=== PATIENT | female | born 1945 | race Caucasian/White ===

== ENCOUNTER → 2016-11-12 | Outpatient (CLI) | payer MEDICARE, MEDICAID ==
[~2016-11-12] MED LIST: ADULT LOW DOSE81 MG PO; ADVAIR IH; ALBUTEROL IH; ALEVE220 M1 PO; ASA CHILDREN'S81 MG PO; ATIVAN-DPS0.5 MG PO; BENZONATATE200 MG PO; BREO ELLIPTA 21 EACH IH; BROVANA15 MCG/2 M IH; CALTRATE 600 +1 EAC1 PO; CALTRATE-600 W600 MG PO; COLACE-DPS100 MG PO; DELTASONE DPS10 MG PO; DUONEB DPS3 ML IH; DURAGESIC-1212 MCG TP; FLEXERIL DPS5 MG PO; GABAPENTIN300 MG PO; GLUCOPHAGE XR750 M1 PO; HUMALOG SQ; HYZAAR 50-12.51 TAB PO; LEVAQUIN DPS500 MG PO; LEVAQUIN750 MG PO; LOSARTAN-HCTZ1 EAC2 PO; METFORMIN HCL750 MG PO; METOLAZONE2.5 MG PO; MONTELUKAST SOD10 MG PO; MUCINEX600 MG PO; NEURONTIN DPS300 MG PO; NORCO 5-325 TA1 EACH PO; NOVOLOG MI100 UNIT/2 SQ; NOVOLOG MI100 UNITS/ SQ; POTASSIUM CHLO20 ME2 PO; POTASSIUM CHLO20 MEQ PO; PREDNISONE PO; PRILOSEC DPS20 MG PO; PROAIR HFA8.5 GM IH; PROVENTIL2.5 MG/3 M IH; PULMICORT0.5 MG/21 IH; SINGULAIR10 MG PO; TYLENOL EXTRA500 M1 PO; TYLENOL325 MG PO; ULTRAM DPS50 MG PO; ZANAFLEX4 MG PO
== END | disposition home or self-care (01) ==
LOC: RAD.S 09:10
DX: Z12.31 Encounter for screening mammogram for malignant neoplasm of breast (principal)